=== PATIENT | female | born 1950 | race Caucasian/White ===

== ENCOUNTER 2020-05-17 16:50 | Emergency (ER) | payer MEDICARE, SELFPAY ==
--- NOTE | ~2020-05-17 | XR_ITS ---
EXAMINATION: XR chest 2V DATE: 05/17/2020 17:39 INDICATION: Palpitations. TECHNIQUE: Frontal and lateral views of the chest were obtained. COMPARISON: Chest 2 views 05/05/2019 FINDINGS: The chest demonstrates clear lungs without pneumonia, pleural effusion, or pneumothorax. Th e heart size is normal. IMPRESSION: 1. No acute cardiopulmonary disease. Reviewed, dictated and finalized at location A.
--- NOTE | 2020-05-17 17:18 | ECG_ITS ---
Measurements Intervals [place] Rate: 89 P: 78 TN: 169 QRS: 25 QRSD: 78 T: 53 QT: 342 QTc: 417 Interpretive Statements SINUS RHYTHM BASELINE ARTIFACT- I, II, AVR NORMAL ECG Electronically Signed On 05-18-2020 7:28:21 CDT by Ajit Torres D.O.
[2020-05-17 17:24] VITALS: BP 136/96; PULSE 87; RESP 16; TEMP 36.8; O2SAT 99
[2020-05-17 17:29] LABS: Basophils Absolute Auto 0.1 K/mm3 (0.0-0.1); Basophils Percent Auto 0.9 % (0.2-1.2); Eosinophils Absolute Auto 0.2 K/mm3 (0-0.3); Eosinophils Percent Auto 1.4 % (0-4.4); Hematocrit 45.7 % (37.0-47.0); Hemoglobin 15.2 g/dL (12.0-15.0); Immature Granulocyte Absolute 0.02 K/mm3 (0.00-0.031); Immature Granulocyte Percent A 0.2 % (0-0.5); Lymphocytes Absolute Auto 3.66 K/mm3 (0.9-3.2); Lymphocytes Percent Auto 35.2 % (18.3-44.2); Mean Corpuscular HGB Conc 33.3 g/dl (32-36); Mean Corpuscular Hemoglobin 32.2 pg (26-34); Mean Corpuscular Volume 96.8 fl (80-100); Mean Platelet Volume 9.7 fl (7.4-10.4); Monocytes Absolute Auto 1.2 K/mm3 (0.1-0.6); Neutrophils Absolute Auto 5.3 K/mm3 (1.3-6.7); Neutrophils Percent Auto 51.3 % (45.5-73.1); Platelet Count Result 254 k/mm3 (150-375); Red Blood Count 4.72 M/mm3 (4.2-5.4); Red Cell Distribution Width 12.2 % (11.5-14.5); White Blood Count 10.4 K/mm3 (4.5-10.0)
[2020-05-17 17:32] VITALS: BP 127/69; PULSE 92; RESP 18; O2SAT 97
[2020-05-17 17:39] LABS: INR 2.6; Partial Thromboplastin Time 47.4 SECONDS (22.3-36.8); Prothrombin Time 27.3 Seconds (11.1-14.7)
[2020-05-17 18:17] VITALS: BP 113/75; PULSE 88; RESP 18; O2SAT 100
[2020-05-17 18:24] LABS: Blood Urea Nitrogen 14 mg/dL (7-17); Calcium 9.6 mg/dL (8.4-10.2); Carbon Dioxide 29 mmol/L (22-30); Chloride 102 mmol/L (98-107); Estimated CRCL calculation 53 ml/min; Estimated Glomerular Filt Rate > 60; Glucose 99 mg/dL (65-105); Potassium 4.2 mmol/L (3.4-5.0); Sodium 140 mmol/L (137-145)
[2020-05-17 18:34] LABS: Troponin I < 0.012 ng/mL (0.000-0.034)
--- NOTE | 2020-05-17 19:30 | ED.ARRPALP ---
HPI - Arrhythmia/Palpitations General Chief Complaint: Arrhythmia/Palpitations Stated Complaint: possibly in AFIBB Time Seen by Provider: 05/17/20 19:03 History of Present Illness HPI narrative: Patient presents with her for heart palpitations off and on in the last week. She has a history of A. fib and is on Xarelto. She had an ablation a year ago. The symptoms just come and go and not in relation to any particular activity. Here her EKG shows sinus rhythm. She says she is having the palpitations even as we are speaking. The monitor shows sinus rhythm and her pulse is regular. She usually drinks 5 or 6 alcoholic beverages a day, and I explained it may be adrenaline stimulation from relative alcohol withdrawal. I recommended she follow-up with her county sheriff. She has had no other recent symptoms. She says that she has cigarettes but that she does not inhale. complaint: skipped beats and palpitations Onset (ago): week(s) Duration: intermittent Severity: moderate Context: occurred during rest Arrhythmia history: atrial fibrillation, on anti-coagulants and history of ablation Associated symptoms: denies other symptoms Related Data Home Medications Medication Instructions Recorded Confirmed metoprolol succinate 100 mg 100 mg PO DAILY 11/21/19 tablet,extended release 24 hr rivaroxaban 20 mg tablet 20 mg PO DAILY 11/21/19 coQ10 (ubiquinol) 200 mg PO DAILY 05/17/20 Allergies Allergy/AdvReac Type Severity Reaction Status Date / Time No Known Allergies Allergy Unknown Unverified 05/17/20 17:19 Review of Systems Review of Systems: Narrative: CONSTITUTIONAL: Denies fever, chills, or sweats. EYES: Denies visual changes, redness, or discharge. ENT: Denies rhinorrhea, congestion, sore throat, or otalgia. CARDIOVASCULAR: Denies chest pain, but does have palpitations. RESPIRATORY: Denies cough or dyspnea. GASTROINTESTINAL: Denies abdominal pain, nausea, vomiting, or diarrhea. GENITOURINARY: Denies dysuria or hematuria. SKIN: Denies rash or itching. MUSCULOSKELETAL: Denies back pain, joint pain, or myalgia. NEUROLOGIC: Denies headache, numbness, or weakness. PSYCHIATRIC: Denies anxiety or depression. All systems reviewed & are unremarkable except as noted in HPI and below PMFSH Surgical History Surgical History H/O: hysterectomy (~1988) History of tonsillectomy (~4) Family History Family History (Updated 11/21/19 @ 11:04 by Chantal Barron [facility]) Mother Stomach cancer Other Arthritis Cancer FH: cataracts Glaucoma Heart disease Shortness of breath Social History Social History (Updated 11/21/19 @ 11:07 by Chantal Barron [facility]) Smoking packs per day: 2 Smoking cigarettes per day: 40.0 Years smoked: 50 Smoking pack-years: 100.00 Smoking status: Current every day smoker Tobacco type: cigarettes Alcohol intake: current Substance use: unknown Gender identity (if verbalized by the patient): Female Exam Narrative: Exam Narrative: GENERAL: Well-appearing, well-nourished, and in no acute distress. HEAD: Normocephalic, atraumatic. EYES: PERRLA and EOMI. ENT: Nares clear, no rhinorrhea or epistaxis. Mucous membranes moist. NECK: Supple. CHEST: Clear to auscultation. No respiratory distress. HEART: Regular rate and rhythm. No murmur heard. Normal peripheral pulses. ABDOMEN: Soft, nontender, nondistended, normal active bowel sounds. EXTREMITIES: Normal range of motion. No edema. SKIN: Warm, dry, no rash. NEURO: No focal deficits. Alert and oriented x3. PSYCH: Normal mood and affect. Course Vital Signs Vital signs: Vital Signs Temperature 98.3 F 05/17/20 17:24 Pulse Rate 87 05/17/20 17:24 Respiratory Rate 16 05/17/20 17:24 Blood Pressure 136/96 H 05/17/20 17:24 Pulse Oximetry 99 05/17/20 17:24 Temperature 98.3 F 05/17/20 17:24 Pulse Rate 88 05/17/20 18:17 Respi
[2020-05-17 20:16] VITALS: BP 111/73; PULSE 84; RESP 16; TEMP 36.4; O2SAT 97
== END 2020-05-17 20:17 | disposition home or self-care (01) ==
PROVIDERS: Emergency Medicine; Emergency Provider Emergency Medicine; PCP Family Medicine
DX: R00.2 Palpitations (principal); D75.1 Secondary polycythemia; I48.91 Unspecified atrial fibrillation; Z79.01 Long term (current) use of anticoagulants; F17.210 Nicotine dependence, cigarettes, uncomplicated
CPT/HCPCS: 36415; 71046; 80048; 84484; 85025; 85610; 85730; 93005; 99284

== ENCOUNTER 2021-10-20 15:53 | Emergency (ER) | payer MEDICARE, SELFPAY ==
--- NOTE | 2021-10-20 16:01 | ECG_ITS ---
Measurements Intervals [place] Rate: 156 P: SC: 0 QRS: 21 QRSD: 76 T: 52 QT: 261 QTc: 421 Interpretive Statements ATRIAL FIBRILLATION WITH RAPID VENTRICULAR RESPONSE ABNORMAL ECG Electronically Signed On 10-21-2021 8:04:22 [employer] by Ajit Torres D.O.
[2021-10-20 16:05] VITALS: BP 153/89; PULSE 156; RESP 18; TEMP 36.4; O2SAT 97
== END 2021-10-21 04:30 | disposition left against medical advice (07) ==
PROVIDERS: Emergency Provider Emergency Medicine; PCP Family Medicine
DX: I48.91 Unspecified atrial fibrillation (principal); Z79.01 Long term (current) use of anticoagulants
CPT/HCPCS: 93005; 99199

== ENCOUNTER 2021-12-27 01:46 | Day surgery (SDC) | payer MEDICARE, SELFPAY ==
[2021-12-24 17:00] VITALS: BMI 24.3
[2021-12-27] VITALS (11 sets, daily range): BP systolic 93–141; BP diastolic 64–102; PULSE 77–144; RESP 13–20; TEMP 36; O2SAT 94–100; BMI 23.6
--- NOTE | 2021-12-27 10:00 | ECG_ITS ---
Measurements Intervals [place] Rate: 76 P: 73 AR: 171 QRS: 26 QRSD: 94 T: 78 QT: 399 QTc: 449 Interpretive Statements SINUS RHYTHM MINIMAL Q WAVES- INFERIOR LEADS BORDERLINE ECG Electronically Signed On 12-27-2021 12:17:31 [employer] by Ajit Torres D.O.
[2021-12-27] MEDS: SODIUM CHLORIDE 0.9% IV 1,000 ML 30 ML IV CONT (11:04)
[2021-12-27 11:13] LABS: Anion Gap 8 mmol/L (8-16); Blood Urea Nitrogen 10 mg/dL (7-17); Carbon Dioxide 26 mmol/L (22-30); Chloride 108 mmol/L (98-107); Estimated CRCL calculation 58 ml/min; Estimated Glomerular Filt Rate > 60; Glucose 104 mg/dL (65-110); Magnesium 1.8 mg/dL (1.6-2.3); Potassium 3.9 mmol/L (3.4-5.0); Sodium 142 mmol/L (137-145)
--- NOTE | 2021-12-27 11:14 | WPDMODSED ---
Moderate Sedation Note-Pt Data Patient Data Diagnosis: Atrial fibrillation Present Complaint: Atrial fibrillation Procedure to be performed/Plan: Elective electrical cardioversion Moderate sedation Allergies Allergy/AdvReac Type Severity Reaction Status Date / Time adhesive tape AdvReac Rash Verified 12/24/21 15:39 nickel AdvReac Rash Verified 12/24/21 15:38 Home Medications Medication Instructions Recorded Confirmed Type rivaroxaban 20 mg tablet 20 mg PO DAILY 11/21/19 12/27/21 History sertraline 25 mg tablet 25 mg PO DAILY #90 tablet 11/04/21 12/27/21 Rx coenzyme Q10 [Co Q-10] 200 mg PO DAILY 12/24/21 12/27/21 History diltiazem HCl [DILT-XR] 120 mg PO DAILY 12/24/21 12/27/21 History metoprolol tartrate 100 mg PO BID 12/24/21 12/27/21 History diphenhydramine HCl 25 mg PO HS PRN 12/27/21 12/27/21 History Current Medications: Active Medications Sodium Chloride (Normal Saline Iv) 1,000 mls @ 30 mls/hr IV CONT .Q24H BECCA Last Admin: 12/27/21 11:04 Dose: 30 mls/hr Documented by: Sedation/Anesthesia: No previous sedation/anesthesia problems (including family history). [facility] Past Medical History Medical History Atrial fibrillation Excessive drinking alcohol History of uterine fibroid Surgical History Surgical History H/O: hysterectomy (~1988) History of tonsillectomy (~1954) Family History Family History Mother , age 84 Stomach cancer Father , age 72 Liver cancer Other Arthritis Cancer FH: cataracts Glaucoma Heart disease Shortness of breath Social History Social History Smoking packs per day: 2 Smoking cigarettes per day: 40.0 Years smoked: 50 Smoking pack-years: 100.00 Smoking status: Current every day smoker Tobacco type: cigarettes Alcohol intake: current Substance use: unknown Gender identity (if verbalized by the patient): Female Mod Sed Physical Exam Physical Exam Pre Procedural Exam: Normal: Appearance, Eyes, Ears, Nose, Neck, Throat, Airway, Lungs, Heart Size, Heart Rate, Neuro Exam, Extremities and Skin and Variation: Heart Rhythm Hours since solid foods: 12 Hours since liquid intake: 12 Mallampati Classification: class II Internal Medicine - PN: Obj Da Meds/Results Medications: Active Medications Generic Name Dose Route Start Last Admin Trade Name Freq PRN Reason Stop Dose Admin Sodium Chloride 1,000 mls @ 30 mls/hr 12/27/21 10:00 12/27/21 11:04 Normal Saline Iv IV CONT 30 mls/hr .Q24H BECCA Administration Labs CBC & Chem 7: 12/27/21 10:45 Labs: Laboratory Results - last 24 hr 12/27/21 10:45 Sodium 142 Potassium 3.9 Chloride 108 H Carbon Dioxide 26 Anion Gap 8 BUN 10 Creatinine 0.70 Estim Creat Clear Calc 58 Estimated GFR > 60 Glucose 104 Calcium 9.0 Magnesium 1.8 ASA Classification/Sedation ASA Classification/Sedation ASA Class: II Emergent: No Risks: Risks, benefits and alternatives explained and patient/family accepted plan for sedation. Patient re-evaluated immediately prior to sedation.
--- NOTE | 2021-12-27 11:42 | P.PCNCVR_ITS ---
Cardioversion Cardioversion Date of procedure: 12/27/21 Procedure: 1. Electrical cardioversion 2. Moderate sedation Pre-op diagnosis: Atrial fibrillation Post-op diagnosis: same Indications: Atrial fibrillation Description of procedure: After discussing the risks, benefits and alternatives of procedure patient agreeable via verbal and written informed consent. Risks discussed include stroke, skin irritation or burn, shocking into more problematic heart rhythm, adverse reaction to anesthesia, . After time-out was taken and after already established and continuous telemetry monitoring, pulse oxygenation serial blood pressure assessments, procedure was initiated. Sedation: Versed 5 mg, fentanyl 100 mcg given in divided dosages Patient was monitored and medications were provided by Shazia Hawkins RN Procedure start time 11:24 a.m. Procedure stop time 11:40 a.m. Complications: None Blood loss: None Findings: Atrial fibrillation with rapid ventricular response was confirmed. Two hundred joules of biphasic synchronized energy was then used. The previously placed anterior and posterior defibrillator applies were in place. Two hundred joules of biphasic energy x1 restored sinus rhythm. Conclusion: 1. Successful scientology of sinus rhythm from atrial fibrillation using 200 joules of synchronized biphasic energy x1 2. Moderate sedation
--- NOTE | 2021-12-27 11:45 | ECG_ITS ---
Measurements Intervals [place] Rate: 121 P: RI: 0 QRS: 22 QRSD: 76 T: 69 QT: 313 QTc: 444 Interpretive Statements ATRIAL FIBRILLATION WITH RAPID VENTRICULAR RESPONSE NONSPECIFIC T-WAVE ABNORMALITY- HIGH LATERAL LEADS BASELINE ARTIFACT- I, III, AVL, AVF ABNORMAL ECG Electronically Signed On 12-27-2021 12:14:14 [facility] by Ajit Torres D.O.
--- NOTE | 2021-12-27 13:58 | SUR.PHASEII ---
1315 patient was discharged to home in stable condition. discharge/med instructions and follow ups reviewed with patient and Francisco and questions were answered.
== END 2021-12-27 13:15 | disposition home or self-care (01) ==
PROVIDERS: PCP Family Medicine; Visit Provider Internal Medicine Cardiovascular Disease
PROC: 5A2204Z Restoration of Cardiac Rhythm, Single (ICD-10-PCS; principal; 2021-12-27 11:30)
DX: I48.0 Paroxysmal atrial fibrillation (principal); Z79.01 Long term (current) use of anticoagulants; Z82.49 Family history of ischemic heart disease and other diseases of the circulatory system; Z87.891 Personal history of nicotine dependence; R53.83 Other fatigue; F10.10 Alcohol abuse, uncomplicated
CPT/HCPCS: 36415; 80048; 83735; 92960; J2250; J3010; J7030

== ENCOUNTER 2024-03-14 00:42 | Day surgery (SDC) | payer MEDICARE, SELFPAY ==
[2024-03-13 16:15] VITALS: BMI 24.5
[2024-03-14] VITALS (9 sets, daily range): BP systolic 123–144; BP diastolic 70–109; PULSE 72–132; RESP 12–32; TEMP 35.9; O2SAT 93–100; BMI 24.5
--- NOTE | 2024-03-14 10:00 | ECG_ITS ---
SEE SCANNED COPY FOR CONFIRMED REPORT MTDD
[2024-03-14 11:43] LABS: Alanine Aminotransferase 34 U/L (6-35); Albumin Level 4.7 g/dL (3.5-5.1); Alkaline Phosphatase 74 U/L (38-126); Anion Gap 6 mmol/L (4-12); Aspartate Amino Transferase 41 U/L (14-36); Bilirubin,Total 0.7 mg/dL (0.2-1.3); Blood Urea Nitrogen 13 mg/dL (7-17); Calcium 9.2 mg/dL (8.4-10.2); Carbon Dioxide 30 mmol/L (22-30); Chloride 104 mmol/L (98-107); Estimated CRCL calculation 56 ml/min; Estimated Glomerular Filt Rate > 60; Glucose 101 mg/dL (65-110); Magnesium 1.8 mg/dL (1.6-2.3); Potassium 4.2 mmol/L (3.4-5.0); Sodium 140 mmol/L (137-145)
--- NOTE | 2024-03-14 11:45 | WPDHPUPDATE1 ---
History and Physical Update Update Date/Time: 03/14/24 11:45 History and Physical has been reviewed, including an updated exam of the patient. There are NO changes in the patient's condition. Risks, benefits, and alternatives have been discussed and questions answered. Patient agrees to proceed with procedure.
--- NOTE | 2024-03-14 11:45 | WPDMODSED ---
Moderate Sedation Note-Pt Data Patient Data Diagnosis: Symptomatic atrial fibrillation Present Complaint: Symptomatic atrial fibrillation Procedure to be performed/Plan: Synchronized electrical cardioversion Allergies Allergy/AdvReac Type Severity Reaction Status Date / Time adhesive tape AdvReac Rash Verified 03/14/24 10:13 nickel AdvReac Rash Verified 03/14/24 10:13 Home Medications Medication Instructions Recorded Confirmed Type rivaroxaban 20 mg tablet (Xarelto) 20 mg PO DAILY 11/21/19 03/14/24 History coenzyme Q10 200 mg capsule (Co 300 mg PO DAILY 12/24/21 03/14/24 History Q-10) metoprolol tartrate 100 mg tablet 100 mg PO BID 12/24/21 03/14/24 History sertraline 50 mg tablet (Zoloft) 50 mg PO DAILY #90 tabs 02/12/24 03/14/24 Rx Os-Luiz 750 mg PO DAILY 03/13/24 03/14/24 History Sedation/Anesthesia: No previous sedation/anesthesia problems (including family history). [facility] Past Medical History Medical History Atrial fibrillation Excessive drinking alcohol History of uterine fibroid Surgical History Surgical History H/O: hysterectomy (~1988) History of tonsillectomy (~1953) Family History Family History Mother , age 84 Stomach cancer Father , age 72 Liver cancer Other Arthritis Cancer FH: cataracts Glaucoma Heart disease Shortness of breath Social History Social History Smoking packs per day: 2 Smoking cigarettes per day: 40.0 Years smoked: 50 Smoking pack-years: 100.00 Smoking status: Current every day smoker Tobacco type: cigarettes Alcohol intake: current Drinks per week: 21 Substance use: never Substance use type: does not use Living arrangements: with family Gender identity (if verbalized by the patient): Female Spiritual care concerns: No Mod Sed Physical Exam Physical Exam Pre Procedural Exam: Normal: Appearance, Lungs, Extremities and Skin and Variation: Heart Rate (Atrial fibrillation ) and Heart Rhythm (Atrial fibrillation ) Hours since solid foods: 12 Hours since liquid intake: 8 Mallampati Classification: class II Internal Medicine - PN: Obj Da Vital Signs Vital Signs: Vital Signs - 24 hr 03/14/24 10:29 Temperature 35.9 C L Pulse Rate 98 Respiratory Rate 16 Blood Pressure 144/97 H Pulse Oximetry 93 Oxygen Delivery Room Air Labs 03/14/24 11:23 Labs: Laboratory Results - last 24 hr 03/14/24 11:23 Sodium 140 Potassium 4.2 Chloride 104 Carbon Dioxide 30 Anion Gap 6 BUN 13 Creatinine 0.70 Estim Creat Clear Calc 56 Estimated GFR > 60 Glucose 101 Calcium 9.2 Magnesium 1.8 Total Bilirubin 0.7 AST 41 H ALT 34 Alkaline Phosphatase 74 Total Protein 8.0 Albumin 4.7 ASA Classification/Sedation ASA Classification/Sedation ASA Class: II Emergent: No Risks: Risks, benefits and alternatives explained and patient/family accepted plan for sedation. Patient re-evaluated immediately prior to sedation.
--- NOTE | 2024-03-14 11:46 | WPDCARDVER ---
Cardioversion Cardioversion Date of procedure: 03/14/24 Procedure: Synchronized electrical cardioversion Pre-op diagnosis: Atrial fibrillation Post-op diagnosis: Other (Sinus rhythm ) Indications: Symptomatic atrial fibrillation Description of procedure: Defibrillator pads placed in an AP position. Patient's hemodynamics and respiratory status was monitored throughout. Time out performed by FEDERICA Rocha. Total of Propofol 80mcg was administered. Once patient was adequately sedated, synchronized electrical cardioversion was performed with 1 shock at 250 joules, which restored sinus rhythm. No periprocedural complications. Procedure start time: 11:53 Procedure end time: 12:01 Sedation: Total of Propofol 80mg was administered by wy. Findings: Successful cardioversion to sinus rhythm with 1 shock at 250 joules. Conclusion: Successful cardioversion to sinus rhythm with 1 shock at 250 joules.
--- NOTE | 2024-03-14 12:00 | ECG_ITS ---
SEE SCANNED COPY FOR CONFIRMED REPORT MTDD
== END 2024-03-14 13:05 | disposition home or self-care (01) ==
PROVIDERS: PCP Family Medicine; Visit Provider Internal Medicine
PROC: 5A2204Z Restoration of Cardiac Rhythm, Single (ICD-10-PCS; principal; 2024-03-14 11:30)
DX: I48.91 Unspecified atrial fibrillation (principal); F17.210 Nicotine dependence, cigarettes, uncomplicated; Z79.01 Long term (current) use of anticoagulants; Z98.890 Other specified postprocedural states; Z80.0 Family history of malignant neoplasm of digestive organs; Z82.49 Family history of ischemic heart disease and other diseases of the circulatory system
CPT/HCPCS: 36415; 80053; 83735; 92960; J2704; J7040

== ENCOUNTER 2024-03-17 10:46 | Inpatient (IN) | payer MEDICARE, SELFPAY ==
[2024-03-17] VITALS (31 sets, daily range): BP systolic 111–152; BP diastolic 61–98; PULSE 70–96; RESP 13–24; TEMP 36.4–36.7; O2SAT 85–99; BMI 24.5
--- NOTE | ~2024-03-17 | XR_ITS ---
EXAMINATION: XR chest 2V DATE: 03/17/2024 11:34 INDICATION: Shortness of breath. TECHNIQUE: Frontal and lateral views of the chest were obtained. COMPARISON: Chest 2 views 05/17/2020 FINDINGS: There is a diffuse interstitial pattern in the lungs, consistent with mild pulmonary edema. No pleural effusion or pneumothorax. The heart size is normal. IMPRESSION: 1. Mild pulmonary edema. Reviewed, dictated and finalized at location A. IMPRESSION: 1. Mild pulmonary edema.
--- NOTE | ~2024-03-17 | CT_ITS ---
EXAMINATION: CTA chest PE protocol DATE: 03/18/2024 17:20 INDICATION: Hypoxia. Elevated d-dimer. TECHNIQUE: Computed tomography (CT) pulmonary angiogram of the chest was performed with 100 mL Omnipa que-350 intravenous contrast. Additional 3D reconstructions utilizing coronal maximum intensity proje ction (MIP) were performed. Automated exposure control and iterative reconstruction technique were em ployed. The dose-length product was 243.97 mGy-cm. COMPARISON: None FINDINGS: No pulmonary embolism. Moderate upper lung predominant emphysema. 1.7 x 1.5 cm patchy airspace opacit y at the posterior basilar left lower lobe. Additional 6 x 4 mm subpleural nodule in the left lower l obe. Mild atelectasis at the posterior sulcus of the right lower lobe. Heart size is normal. Small am ount of atherosclerotic coronary artery calcification. Ectatic ascending thoracic aorta measuring up to 4.2 cm. Instantly noted is a diverticulum of [place] on the inferior margin of the aortic arch. No pathologically enlarged thoracic lymphadenopathy. There is reflux of contrast into the inferior vena cava, several hepatic veins and right renal veins consistent with tricuspid regurgitation. Large calc ified gallstone in the decompressed gallbladder. Mild thoracic spondylosis. Severe spondylosis in the lower cervical and upper lumbar spine. IMPRESSION: 1. No pulmonary embolism. 2. Moderate emphysema in the upper lungs. 3. 1.7 x 1.5 cm patchy consolidation in the posterior basilar left lower lobe suspicious for pneumoni a but would recommend 3 month follow-up low-dose noncontrast chest CT to document resolution. 4. Cholelithiasis. Reviewed, dictated and finalized at location A. IMPRESSION: 1. No pulmonary embolism. 2. Moderate emphysema in the upper lungs. 3. 1.7 x 1.5 cm patchy consolidation in the posterior basilar left lower lobe s uspicious for pneumonia but would recommend 3 month follow-up low-dose noncontr ast chest CT to document resolution. 4. Cholelithiasis.
--- NOTE | 2024-03-17 10:48 | ECG_ITS ---
SEE SCANNED COPY FOR CONFIRMED REPORT MTDD
[2024-03-17 11:08] LABS: Basophils Absolute Auto 0.1 K/mm3 (0.0-0.1); Basophils Percent Auto 0.4 % (0.2-1.2); Eosinophils Absolute Auto 0.1 K/mm3 (0-0.3); Eosinophils Percent Auto 0.4 % (0-4.4); Hematocrit 41.6 % (37.0-47.0); Hemoglobin 13.6 g/dL (12.0-15.0); Immature Granulocyte Absolute 0.02 K/mm3 (0.00-0.031); Immature Granulocyte Percent A 0.2 % (0-0.5); Lymphocytes Absolute Auto 2.08 K/mm3 (0.9-3.2); Lymphocytes Percent Auto 18.3 % (18.3-44.2); Mean Corpuscular HGB Conc 32.7 g/dl (32-36); Mean Corpuscular Hemoglobin 31.3 pg (26-34); Mean Corpuscular Volume 95.6 fl (80-100); Mean Platelet Volume 9.6 fl (7.4-10.4); Monocytes Absolute Auto 1.2 K/mm3 (0.1-0.6); Monocytes Percent Auto 10.8 % (2.6-8.5); Neutrophils Percent Auto 69.9 % (45.5-73.1); Platelet Count Result 176 k/mm3 (150-375); Red Blood Count 4.35 M/mm3 (4.2-5.4); Red Cell Distribution Width 13.1 % (11.5-14.5); White Blood Count 11.4 K/mm3 (4.5-10.0)
[2024-03-17 11:19] LABS: Alanine Aminotransferase 42 U/L (6-35); Albumin Level 4.3 g/dL (3.5-5.1); Alkaline Phosphatase 62 U/L (38-126); Anion Gap 7 mmol/L (4-12); Aspartate Amino Transferase 44 U/L (14-36); Bilirubin,Total 1.3 mg/dL (0.2-1.3); Blood Urea Nitrogen 8 mg/dL (7-17); Calcium 9.1 mg/dL (8.4-10.2); Carbon Dioxide 28 mmol/L (22-30); Chloride 101 mmol/L (98-107); Estimated CRCL calculation 76 ml/min; Estimated Glomerular Filt Rate > 60; Glucose 145 mg/dL (65-110); Potassium 3.9 mmol/L (3.4-5.0); Sodium 136 mmol/L (137-145)
--- NOTE | 2024-03-17 11:19 | PC.NURSE ---
Pt oxygen fluctuating between 89-92%. Pt still c/o SOB. 2L NC oxygen placed on patient. Oxygen saturation increased to 95% and pt reports feeling better.
[2024-03-17] MEDS: FUROSEMIDE INJ 40 MG/4 ML VIAL IV PUSH (12:07)
[2024-03-17 12:37] LABS: INR 1.3; Prothrombin Time 16.5 Seconds (11.1-14.7)
[2024-03-17 12:39] LABS: Partial Thromboplastin Time 41.6 Seconds (22.3-36.8)
[2024-03-17 12:48] LABS: NT Pro B Type Natriuretic Pept 3810 pg/mL (19.9-100)
--- NOTE | 2024-03-17 12:57 | PC.NURSE ---
Dr. Collado at bedside, removed oxygen to assess patient oxygenation s/p medication
--- NOTE | 2024-03-17 13:19 | PC.NURSE ---
Ambulated patient with pulse oximeter per MD request. Pt oxygen dropped to 86% when walked to bathroom. Pt repositioned back in bed and oxygen maintained between 85-90% for several minutes and then increased back to 94% after resting. MD made aware.
--- NOTE | 2024-03-17 13:55 | PC.NURSE ---
Pt requesting to take home medications that she has brought with her. made aware. EDP Dr. Collado gave pt permission to take scheduled afternoon home meds.
--- NOTE | 2024-03-17 13:55 | ED.SOB ---
HPI - SOB/Dyspnea General Chief Complaint: Shortness of Breath/Dyspnea Stated Complaint: shortness of breath Time Seen by Provider: 03/17/24 11:11 History of Present Illness HPI Narrative: Patient is a 73-year-old female who presents ER with shortness of breath. Ongoing since she had her cardioversion for atrial fibrillation on 03/14/2024. She sees Dr. Mark. No fevers or chills or sweats. Symptoms are worse at night when lying down flat. No chest pain or chest pressure. Compliant with home medication. Related Data Home Medications Medication Instructions Recorded Confirmed rivaroxaban 20 mg tablet (Xarelto) 20 mg PO DAILY 11/21/19 03/14/24 coenzyme Q10 200 mg capsule (Co 300 mg PO DAILY 12/24/21 03/14/24 Q-10) metoprolol tartrate 100 mg tablet 100 mg PO BID 12/24/21 03/14/24 Os-Luiz 750 mg PO DAILY 03/13/24 03/14/24 Allergies Allergy/AdvReac Type Severity Reaction Status Date / Time adhesive tape AdvReac Rash Verified 03/14/24 10:13 nickel AdvReac Rash Verified 03/14/24 10:13 Review of Systems Review of Systems: All systems reviewed & are unremarkable except as noted in HPI and below ENT: Reports system reviewed and no additional complaints, except as documented Cardiovascular: Cardiovascular: Reports no additional cardiovascular complaints Respiratory: Respiratory: Denies chest congestion, Denies cough, Reports dyspnea and Denies wheezing Comments: + Orthopnea Gastrointestinal: Gastrointestinal: Reports no additional gastrointestinal complaints [facility] Past Medical History Medical History (Updated 03/17/24 @ 14:01 by Thomas Collado MD) Atrial fibrillation Excessive drinking alcohol History of uterine fibroid Surgical History Surgical History H/O: hysterectomy (~1988) History of tonsillectomy (~4) Family History Family History Mother , age 84 Stomach cancer Father , age 72 Liver cancer Other Arthritis Cancer FH: cataracts Glaucoma Heart disease Shortness of breath Social History Social History Smoking packs per day: 2 Smoking cigarettes per day: 40.0 Years smoked: 50 Smoking pack-years: 100.00 Smoking status: Current every day smoker Tobacco type: cigarettes Alcohol intake: current Drinks per week: 21 Substance use: never Substance use type: does not use Living arrangements: with family Gender identity (if verbalized by the patient): Female Spiritual care concerns: No Exam Narrative: GENERAL: Well-appearing, well-nourished, and in no acute distress. HEAD: Normocephalic, atraumatic. ENT: Mucous membranes moist. NECK: Supple. CHEST: Bibasilar crackles. No respiratory distress. HEART: Regular rate and rhythm. Normal peripheral pulses. ABDOMEN: Soft, nontender, nondistended. EXTREMITIES: Normal range of motion. No edema. SKIN: Warm, dry, no rash. NEURO: Alert and oriented x3. PSYCH: Normal mood and affect. Course Course Emergency Course: Patient hypoxic especially with ambulation. Does better with nasal cannula oxygen. Patient did have brief run of SVT while in the ER but self converted. She was only in the arrhythmia for couple minutes. Cardiology consulted. Patient took her home metoprolol while she was here. Admit to the hospitalist service. Diuresis ordered. Vital Signs Vital signs: Vital Signs Temperature 97.6 F 03/17/24 10:49 Pulse Rate 94 03/17/24 10:49 Respiratory Rate 24 H 03/17/24 10:49 Blood Pressure 147/98 H 03/17/24 10:49 Pulse Oximetry 92 03/17/24 10:49 Oxygen Delivery Room Air 03/17/24 10:49 Temperature 97.6 F 03/17/24 10:49 Pulse Rate 85 03/17/24 14:01 Respiratory Rate 16 03/17/24 14:01 Blood Pressure 132/69 03/17/24 14:01 Pulse Oximetry 93 03/17/24 14:01 Oxygen Delivery
--- NOTE | 2024-03-17 14:04 | ECG_ITS ---
SEE SCANNED COPY FOR CONFIRMED REPORT MTDD
--- NOTE | 2024-03-17 14:05 | PC.NURSE ---
Pt eating in bed when HR increased to 160. Dr. Collado at bedside, ekg performed. Pt converted back to NSR two minutes after. Second ekg performed.
--- NOTE | 2024-03-17 15:00 | PC.NURSE ---
2L NC placed on pt per EDP
--- NOTE | 2024-03-17 15:17 | PC.NURSE ---
Addendum entered by Elen Lyon RN 03/17/24 15:18: attempted to call @ [phone]* Original Note: Attempted to call report to 3rd med surg with no answer [phone]. They called back for report [phone].
--- NOTE | 2024-03-17 15:30 | ADMGEN ---
This patient, Valorie Betts, was admitted to [facility] Surg Room 306-02. Patient/family oriented to hospital policies and general routines including ID bracelet, bed and alarms, visiting hours, pain management, procedures, bathroom and other care routines, personal items, smoking policy, room service/diet, and visiting hours. Information on how to activate the Rapid Response Team has been discussed. Patient/Family are encouraged to report perceived risks to care and to ask questions if they do not understand what they are told or what they should do.
--- NOTE | 2024-03-17 15:46 | PM.IMHP ---
H&P: HPI History of Present Illness Date/Time: 03/17/24 15:45 Chief Complaint: Shortness of breath. Narrative: This is a very pleasant 73-year-old female smoker paroxysmal atrial fibrillation on chronic anticoagulation status post cardioversion on 03/14/[address] Ortiz who presented to the emergency department for evaluation of shortness of breath. She has felt short of breath since November which she assumed was related to persistent atrial fibrillation and it was thought that her symptoms would improve with rastafarian of normal sinus rhythm. Unfortunately the shortness of breath continues with exertion and she is now feeling short of breath at night when lying flat. She had lower extremity edema 4 months though that seems to have improved following cardioversion. She denies syncope, near syncope, chest pain, pleuritic pain, palpitations, sensations of racing heart, nausea, vomiting, and sweats. In the ED: She was in a normal sinus rhythm with rates in the 70s to low 90s but had a self-limiting episode of PSVT for upwards of 2 minutes. SpO2 at rest his in the low 90s however dropped to 85% with ambulation. Blood pressures have been stable. Labs were significant for a WBC count of 11.4, INR 1.3, sodium 136, AST 44, ALT 42, proBNP 3810. Chest x-ray demonstrated mild pulmonary edema. EKG showed sinus rhythm with nonspecific ST T-wave abnormalities. She received 40 mg IV furosemide in addition to her home metoprolol dose of 100 mg and she is being admitted in this setting for further treatment and cardiology consult. Review of Systems Review of Systems: 12 systems were reviewed and are negative except for as per HPI. [facility] Past Medical History Medical History Chronic anticoagulation Osteoporosis Paroxysmal atrial fibrillation Paroxysmal supraventricular tachycardia Tobacco abuse Unhealthy alcohol consumption 21 standard drinks a week as of 03/17/2024. Surgical History Surgical History (Updated 03/17/24 @ 16:01 by Lisa Anglin PA-C) History of cataract extraction (2021) History of hysterectomy (1987) History of laser assisted in situ keratomileusis (1996) History of tonsillectomy (1953) History of tubal ligation Family History Family History Mother , age 84 Stomach cancer Father , age 72 Liver cancer Other Arthritis Cancer FH: cataracts Glaucoma Heart disease Shortness of breath Social History Social History (Updated 03/17/24 @ 16:02 by Lisa Anglin PA-C) Social History: Surrogate medical decision maker: Francisco Betts, spouse. Code status: Full code. Smoking packs per day: 2 Smoking cigarettes per day: 40.0 Years smoked: 50 Smoking pack-years: 100.00 Smoking status: Current every day smoker Alcohol intake: current Drinks per week: 21 Substance use: never Substance use type: does not use Do You Feel Safe in your Home?: Yes Lack of Transportation: No Lack of Food: Never True Current Housing: I Have Housing Concerned About Future Housing: No Difficulty Paying Gas/Electric Bills: No Difficulty Paying for Meds: No Currently Unemployed: No Education: Associate Degree Difficulty w/ Childcare or Family Care: No Living arrangements: with family Spiritual care concerns: No Meds Home Medications and Allergies Home Medications Medication Instructions Recorded Confirmed Type rivaroxaban 20 mg tablet (Xarelto) 20 mg PO DAILY 11/21/19 03/17/24 History coenzyme Q10 200 mg capsule (Co 300 mg PO DAILY 12/24/21 03/17/24 History Q-10) metoprolol tartrate 100 mg tablet 100 mg PO BID 12/24/21 03/17/24 History sertraline 50 mg tablet (Zoloft) 50 mg PO DAILY #90 tabs 02/12/24 03/17/24 Rx Allergies Allergy/AdvReac Type Severity Reaction Status Date / Time adhesive tape AdvReac Rash Verified 03/14/24 10:13 nickel AdvReac Rash Verified 03/14/24 10:13 Hemalatha
[2024-03-17] MEDS: FUROSEMIDE INJ 40 MG/4 ML VIAL 20 MG IV PUSH (20:50)
[2024-03-17] MEDS: SERTRALINE HCL 50 MG TABLET PO (22:12)
[2024-03-17] MEDS: METOPROLOL TARTRATE 50 MG TAB 100 MG PO (22:16)
[2024-03-18] VITALS (13 sets, daily range): BP systolic 111–125; BP diastolic 73–95; PULSE 80–155; RESP 16–18; TEMP 36.2–36.6; O2SAT 93–95
--- NOTE | 2024-03-18 06:00 | ECHO_ITS ---
Patient Info Name: Valorie Betts Age: 73 years : 1950 Gender: Female Ht: 66 in Wt: 152 lbs BSA: 1.80 m2 HR: 115 bpm BP: 111 / 73 mmHg Heart Rhythm: Atrial Fibrillation Technical Quality: Fair Exam Date: 03/18/2024 7:43 AM Exam Location: Echo Lab Patient Status: Outpatient Admit Date: 03/17/2024 Staff Ordering Physician: Thomas Collado MD Staffing Administrator: Maureen Hollis RDCS Attending Provider: Jamil Hirsch MD Referring Physician: Tobias MCCOY; Exam Type: CA echo doppler color flow Study Info Indications - chf exacerbation Complete two-dimensional, color flow and Doppler transthoracic echocardiogram is performed. Summary 1. Complete two-dimensional, color flow and Doppler transthoracic echocardiogram is performed. 2. Normal left and right ventricular size and systolic function. 3. Moderate biatrial dilation. 4. Trivial aortic and mitral regurgitation. 5. Atrial fibrillation. Left Ventricle Left ventricular chamber dimension is normal. Left ventricular systolic function is normal, estimated at 60-65%. The left ventricular diastolic function is indeterminate. Right Ventricle Right ventricular chamber dimension is normal. Left Atria Left atrial chamber dimension is moderately enlarged. Right Atria Right atrial chamber dimension is moderately enlarged. Aortic Valve The aortic valve is normal. There is trace aortic valve regurgitation. Pulmonic Valve The pulmonic valve is normal. Mitral Valve The mitral valve has normal leaflets. There is trace mitral valve regurgitation. Tricuspid Valve The tricuspid valve leaflets are normal. Pericardium/Pleural The pericardium appears normal. Aorta The aortic root size at the sinus of Valsalva is normal. Left Ventricular Outflow Tract Name Value Normal LVOT 2D LVOT Diameter 2.0 cm LVOT Doppler LVOT Peak Gradient 3 mmHg LVOT Mean Gradient 2 mmHg LVOT VTI 15 cm LVOT VTI/AV VTI Ratio 0.9 LVOT Stroke Volume 45 ml LVOT CO 4.7 l/min LVOT CI 2.6 l/min/m2 Pulmonic Valve Name Value Normal RVOT Doppler RVOT Peak Gradient 3 mmHg PV Doppler PV Peak Gradient 3 mmHg Mitral Valve Name Value Normal MV Doppler MV Decel Ocean 343 cm/s2 MV PHT 65 ms MV Area (PHT) 3.4 cm2 4.0-5.0 MV Diastolic Function --
[2024-03-18 06:41] LABS: Hematocrit 41.7 % (37.0-47.0); Hemoglobin 13.8 g/dL (12.0-15.0); Mean Corpuscular HGB Conc 33.1 g/dl (32-36); Mean Corpuscular Hemoglobin 31.6 pg (26-34); Mean Corpuscular Volume 95.4 fl (80-100); Platelet Count Result 171 k/mm3 (150-375); Red Blood Count 4.37 M/mm3 (4.2-5.4); Red Cell Distribution Width 12.9 % (11.5-14.5); White Blood Count 9.7 K/mm3 (4.5-10.0)
[2024-03-18 07:02] LABS: Alanine Aminotransferase 36 U/L (6-35); Albumin Level 4.1 g/dL (3.5-5.1); Alkaline Phosphatase 59 U/L (38-126); Anion Gap 6 mmol/L (4-12); Aspartate Amino Transferase 32 U/L (14-36); Bilirubin,Total 1.5 mg/dL (0.2-1.3); Blood Urea Nitrogen 9 mg/dL (7-17); Calcium 8.8 mg/dL (8.4-10.2); Carbon Dioxide 31 mmol/L (22-30); Chloride 101 mmol/L (98-107); Estimated CRCL calculation 64 ml/min; Estimated Glomerular Filt Rate > 60; Glucose 107 mg/dL (65-110); Magnesium 1.7 mg/dL (1.6-2.3); Potassium 3.1 mmol/L (3.4-5.0); Sodium 138 mmol/L (137-145)
--- NOTE | 2024-03-18 08:10 | P.PNIM_ITS ---
Progress Note: A&P Assessment and Plan (1) Hypoxia: Code(s): R09.02 - Hypoxemia Status: Acute Assessment and Plan: acute oxygen desaturation to 85% on room air with activity * requiring o2 via NC at 2-4 L * pulmonary edema seen on chest XR. Chest XR also concerning for emphysemic changes. * Received IV Lasix * concerning for possible new CHF diagnosis * ECHO ordered and pending * cardiology was consulted, rec's appreciated * Case discussed with Dr Smith's with pulmonology, will see patient tomorrow * BNP will be repeated in the morning * ABG ordered * Apnea link ordered for tonight * D dimer pending * CTA PE vs CT chest diagnostic (2) Pulmonary edema: Code(s): J81.1 - Chronic pulmonary edema Status: Acute Assessment and Plan: See plan for 1 (3) Paroxysmal supraventricular tachycardia: Code(s): I47.10 - Supraventricular tachycardia, unspecified Status: Acute Assessment and Plan: likely related to hypoxia * on telemetry * received home dose metoprolol 100 mg BID (4) Paroxysmal atrial fibrillation: Code(s): I48.0 - Paroxysmal atrial fibrillation Status: Acute Assessment and Plan: Recent cardioversion with Dr Ortiz 03/14/[address] Ortiz * On metoprolol 100 mg BID * On rivaroxaban * Telemetry * EKG NSR ventricular rate 83 bpm (5) Chronic anticoagulation: 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 Status: Acute Assessment and Plan: on xarelto (6) Excessive drinking alcohol: Code(s): F10.10 - Alcohol abuse, uncomplicated Status: Acute Assessment and Plan: daily drinker, 3 beers daily per report * [employer] [place] on decreasing etoh consumption * monitor for withdrawal (7) Tobacco abuse: Code(s): Z72.0 - Tobacco use Status: Acute Assessment and Plan: -[place] on smoking cessation -declined nicotine patch Plan Feeding: Heart healthy diet Analgesia: Tylenol Thromboembolic prophylaxis: on Xarelto Disposition: Home once medically ready Subjective Date/time seen: 03/18/24 08:10 Interval history: This is a very pleasant 73-year-old female smoker paroxysmal atrial fibrillation on chronic anticoagulation status post cardioversion on 03/14/[address] Ortiz who presented to the emergency department for evaluation of shortness of breath.? 03/18: Patient is seen resting in bed on 2 L nasal cannula. She is in no acute respiratory distress since able speak in full sentences. She is tired and complains of not getting enough rest while hospitalized. She denies dyspnea rest but still has exertional dyspnea. Her breathing is somewhat improved since diuresis. She denies chest pain. Echo was just completed. Review of Syst
--- NOTE | 2024-03-18 08:10 | PM.IMPN ---
Progress Note: A&P Assessment and Plan (1) Hypoxia: Code(s): R09.02 - Hypoxemia Status: Acute Assessment and Plan: acute oxygen desaturation to 85% on room air with activity requiring o2 via NC at 2-4 L pulmonary edema seen on chest XR. Chest XR also concerning for emphysemic changes. Received IV Lasix concerning for possible new CHF diagnosis ECHO ordered and pending cardiology was consulted, rec's appreciated Case discussed with Dr Smith's with pulmonology, will see patient tomorrow BNP will be repeated in the morning ABG ordered Apnea link ordered for tonight D dimer pending CTA PE vs CT chest diagnostic (2) Pulmonary edema: Code(s): J81.1 - Chronic pulmonary edema Status: Acute Assessment and Plan: See plan for 1 (3) Paroxysmal supraventricular tachycardia: Code(s): I47.10 - Supraventricular tachycardia, unspecified Status: Acute Assessment and Plan: likely related to hypoxia on telemetry received home dose metoprolol 100 mg BID (4) Paroxysmal atrial fibrillation: Code(s): I48.0 - Paroxysmal atrial fibrillation Status: Acute Assessment and Plan: Recent cardioversion with Dr Ortiz 03/14/[address] Ortiz On metoprolol 100 mg BID On rivaroxaban Telemetry EKG NSR ventricular rate 83 bpm (5) Chronic anticoagulation: 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 Status: Acute Assessment and Plan: on xarelto (6) Excessive drinking alcohol: Code(s): F10.10 - Alcohol abuse, uncomplicated Status: Acute Assessment and Plan: daily drinker, 3 beers daily per report [place] on decreasing etoh consumption monitor for withdrawal (7) Tobacco abuse: Code(s): Z72.0 - Tobacco use Status: Acute Assessment and Plan: -[place] on smoking cessation -declined nicotine patch Plan Feeding: Heart healthy diet Analgesia: Tylenol Thromboembolic prophylaxis: on Xarelto Disposition: Home once medically ready Subjective Date/time seen: 03/18/24 08:10 Interval history: This is a very pleasant 73-year-old female smoker paroxysmal atrial fibrillation on chronic anticoagulation status post cardioversion on 03/14/[address] Ortiz who presented to the emergency department for evaluation of shortness of breath.? 03/18: Patient is seen resting in bed on 2 L nasal cannula. She is in no acute respiratory distress since able speak in full sentences. She is tired and complains of not getting enough rest while hospitalized. She denies dyspnea rest but still has exertional dyspnea. Her breathing is somewhat improved since diuresis. She denies chest pain. Echo was just completed. Review of Systems Review of Systems: 12 systems were reviewed and are negative except for as per HPI. All systems reviewed & are unremarkable except as noted in HPI and below Exam Narrative: General: appears tired, appears stated age. HEENT: normocephalic, atraumatic. Mucous membranes moist. EOMI, PERRLA, bilateral sclera anicteric, no conjunctival injection. Neck supple without JVD, lymphadenopathy, or bruit. Respiratory: fine crackle to auscultation bilaterally. No rales/rhonic/wheezes. Cardiovascular: irregular rhythm, normal S1-S2 upon auscultation. No murmurs, rubs, or clicks. PMI is nondisplaced, capillary refill less than 3 second. Abdomen: Soft, round, no pulsatile masses, nondistended and nontender. No rebound, no guarding. No CVA tenderness, no hepatosplenomegaly. Bowel sounds present to all four quadrants. No high pitch or tinkling sounds, resonant to percussion. Extremities: No cyanosis, clubbing. trace dependent edema present. Pulses are palpable 2/2. Active ROM to all four extremities. Neuro: Alert and orientated x 4. PERRLA. Cranial nerves 2-12 intact without focal deficit. Ski
[2024-03-18] MEDS: METOPROLOL TARTRATE 50 MG TAB 100 MG PO ×2 (08:21→20:26)
[2024-03-18] MEDS: FUROSEMIDE INJ 40 MG/4 ML VIAL 20 MG IV PUSH (08:21)
[2024-03-18] MEDS: SERTRALINE HCL 50 MG TABLET PO (08:21)
[2024-03-18] MEDS: POTASSIUM CHLORIDE 20 MEQ ER TABLET 40 MEQ PO (08:24)
--- NOTE | 2024-03-18 08:40 | PC.NURSE ---
Francine Redding Rf Design Engineer notified of patients heart rate in 150's afib when she sat on side of bed. Patient asymptomatic. Bp 119/95 ra sat 93%
[2024-03-18] MEDS: METOPROLOL TARTRATE INJ 5 MG/5 ML VIAL IV PUSH (08:43)
--- NOTE | 2024-03-18 12:35 | PM.CNCAR ---
Assessment and Plan Assessment and plan (1) Paroxysmal atrial fibrillation: Code(s): I48.0 - Paroxysmal atrial fibrillation Status: Acute Plan This is a 73-year-old lady with a history of paroxysmal atrial fibrillation status post cardioversion last week she presents now with a early recurrence of her atrial fib following cardioversion. It is also clear that this was not the reason for her shortness of breath since she was in sinus rhythm upon arrival here. Symptomatically she really can not tell much difference between how she feels in sinus rhythm versus atrial fibrillation. It must be remembered that this lady also has 100 pack-year history of smoking which undoubtedly is playing some role in her shortness of breath. At this point after a lengthy conversation we will elect to transition to a heart rate control/anticoagulation strategy rather than rhythm control. She does not wish to be subjected to proarrhythmic risks of a more potent antiarrhythmic agent. I will transition her furosemide to an oral regimen since she appears to be relatively comfortable at this time and continue metoprolol and Xarelto. She has an appointment to see my partner in the office on of this week I told her to come to that appointment to ensure that she is otherwise stable. Rakesh Mccall MD [facility] History of Present Illness History of Present Illness Consult date/time: 03/18/24 12:35 Reason For Visit: CHF Exacerbation, Hypoxia, SVT Narrative: This is a 73-year-old woman I am seeing at the request of the hospitalist because of shortness of breath, evidence of CHF and atrial fibrillation. She is a lady who is unknown to me but apparently known to my partner, Dr. Garcia with history of paroxysmal atrial fibrillation. She carried this diagnosis for a number of years but was never documented in till several years ago. She was placed on medical treatment with metoprolol and Xarelto for this and followed in the office since 2019. She is not known to have coronary disease or significant valvular heart disease. She was electrically cardioverted back in 2021 to restore sinus rhythm she has not really been on any significant antiarrhythmic therapy other than her metoprolol. She did have an office visit on 02/06/2024 with my partner who found her to be back in atrial fibrillation. She was scheduled for a DC cardioversion which took place that was done by my partner, Dr. Ortiz I believe last week. She came to the hospital of yesterday reporting symptoms of increasing shortness of breath since being cardioverted. Interestingly when she arrived at the hospital she was still in sinus rhythm although today she has reverted back into atrial fibrillation. Her heart rate is well controlled with atrial fib and she does not believe she can tell any difference verses when she was in sinus rhythm upon arrival here. She is comfortable and offers no complaints and is feeling well at this time. An echocardiogram was done earlier this morning which demonstrates good left ventricular and right ventricular systolic function, moderate biatrial dilation and trivial AI and MR. Had a lengthy discussion with the patient about AFib treatment strategies, or rhythm control versus rate control. Review of Systems Constitutional: Constitutional: Reports no additional constitutional complaints Eyes: Eyes: Reports no additional eye complaints ENT: Reports system reviewed and no additional complaints, except as documented Cardiovascular: Cardiovascular: Reports as per HPI Respiratory: Respiratory: Reports as per HPI Gastrointestinal: Gastrointestinal: Reports no additional gastrointestinal complaints Musculoskeletal: Musculoskeletal: Reports no additional musculoskeletal complaints Integumentary/Breasts: Skin/Breast: Reports system reviewed and no additional complaints, except as docu Neurologic: Reports system reviewed and no additional complaints, except as docume
[2024-03-18 15:38] LABS: Base Excess ABG 4.5 mEq/l (+/-2.0); Fractional Inspired Oxygen 21 %; Oxygen Content ABG 19.8 %vol (16.0-22.0); Oxygen Saturation ABG 94.1 % (95.0-100.0); Oxyhemoglobin 92.5 % THb (90.0-100.0); PCO2 ABG 42.4 mmHg (35.0-45.0); PO2 FiO2 Ratio Arterial Blood 3.19 %; Total Hemoglobin 15.2 g/dL (12.0-18.0); pH ABG 7.453 (7.350-7.450)
[2024-03-18 15:42] LABS: Modified Allen's Test Pass; Site Drawn RIGHT RADIAL
[2024-03-18] MEDS: RIVAROXABAN 20 MG TABLET PO (16:22)
[2024-03-18 16:27] LABS: D Dimer 0.82 ug/mL (<0.48)
[2024-03-19] VITALS (13 sets, daily range): BP systolic 121–128; BP diastolic 64–90; PULSE 80–105; RESP 18; TEMP 36.3–36.9; O2SAT 95–96
[2024-03-19 07:09] LABS: NT Pro B Type Natriuretic Pept 3530 pg/mL (19.9-100)
--- NOTE | 2024-03-19 08:10 | P.PNIM_ITS ---
Progress Note: A&P Assessment and Plan (1) Hypoxia: Code(s): R09.02 - Hypoxemia Status: Acute Assessment and Plan: acute oxygen desaturation to 85% on room air with activity * requiring o2 via NC at 2-4 L * pulmonary edema seen on chest XR. Chest XR also concerning for emphysemic changes. * Received IV Lasix * concerning for possible new CHF diagnosis * ECHO ordered and pending * cardiology was consulted, rec's appreciated * Case discussed with Dr Smith's with pulmonology, will see patient tomorrow * BNP will be repeated in the morning * ABG ordered * Apnea link ordered for tonight * D dimer pending * CTA PE vs CT chest diagnostic 03/19: * CTA negative for PE but does show 1.7 x 1.5 cm patchy consolidation to posterior basilar LLL suspicious for pneumonia. Radiology also recommending follow up CT in 3 months to document resolution. * Mild leukocytosis on admission 11.4, yet afebrile * c/o of SOB and hypoxia on admission. She had reported a cough but no real sputum production. * Started CAP therapy with Rocephin and azithromycin * BNP could be elevated from underlying infection. BNP on admission was 3810 today 3530 after IV Lasix in the ED. * ECHO shows normal L and R LV systolic function, moderate biatrial dilation, trivial aortic and mitral regurgitation. * Apnea link completed. Will be completed again today on 2 L. * Okay to start a daily Claritin per Dr Ortiz with cardiology. Pulmonology to start flonase. (2) Pulmonary edema: Code(s): J81.1 - Chronic pulmonary edema Status: Acute Assessment and Plan: See plan for 1 (3) Paroxysmal supraventricular tachycardia: Code(s): I47.10 - Supraventricular tachycardia, unspecified Status: Acute Assessment and Plan: likely related to hypoxia * on telemetry * received home dose metoprolol 100 mg BID (4) Paroxysmal atrial fibrillation: Code(s): I48.0 - Paroxysmal atrial fibrillation Status: Deleted Assessment and Plan: Recent cardioversion with Dr Ortiz 03/14/[address] Ortiz * On metoprolol 100 mg BID * On rivaroxaban * Telemetry * EKG NSR ventricular rate 83 bpm 03/19: * AFib with RVR this morning * Cardiology added amiodarone 400 mg t.i.d. for 1 week followed by 400 mg b.i.d. 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
--- NOTE | 2024-03-19 08:10 | PM.IMPN ---
Progress Note: A&P Assessment and Plan (1) Hypoxia: Code(s): R09.02 - Hypoxemia Status: Acute Assessment and Plan: acute oxygen desaturation to 85% on room air with activity requiring o2 via NC at 2-4 L pulmonary edema seen on chest XR. Chest XR also concerning for emphysemic changes. Received IV Lasix concerning for possible new CHF diagnosis ECHO ordered and pending cardiology was consulted, rec's appreciated Case discussed with Dr Smith's with pulmonology, will see patient tomorrow BNP will be repeated in the morning ABG ordered Apnea link ordered for tonight D dimer pending CTA PE vs CT chest diagnostic 03/19: CTA negative for PE but does show 1.7 x 1.5 cm patchy consolidation to posterior basilar LLL suspicious for pneumonia. Radiology also recommending follow up CT in 3 months to document resolution. Mild leukocytosis on admission 11.4, yet afebrile c/o of SOB and hypoxia on admission. She had reported a cough but no real sputum production. Started CAP therapy with Rocephin and azithromycin BNP could be elevated from underlying infection. BNP on admission was 3810 today 3530 after IV Lasix in the ED. ECHO shows normal L and R LV systolic function, moderate biatrial dilation, trivial aortic and mitral regurgitation. Apnea link completed. Will be completed again today on 2 L. Okay to start a daily Claritin per Dr Ortiz with cardiology. Pulmonology to start flonase. (2) Pulmonary edema: Code(s): J81.1 - Chronic pulmonary edema Status: Acute Assessment and Plan: See plan for 1 (3) Paroxysmal supraventricular tachycardia: Code(s): I47.10 - Supraventricular tachycardia, unspecified Status: Acute Assessment and Plan: likely related to hypoxia on telemetry received home dose metoprolol 100 mg BID (4) Paroxysmal atrial fibrillation: Code(s): I48.0 - Paroxysmal atrial fibrillation Status: Deleted Assessment and Plan: Recent cardioversion with Dr Ortiz 03/14/[address] Ortiz On metoprolol 100 mg BID On rivaroxaban Telemetry EKG NSR ventricular rate 83 bpm 03/19: AFib with RVR this morning Cardiology added amiodarone 400 mg t.i.d. for 1 week followed by 400 mg b.i.d. 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 Status: Acute Assessment and Plan: on xarelto (6) Excessive drinking alcohol: Code(s): F10.10 - Alcohol abuse, uncomplicated Status: Acute Assessment and Plan: daily drinker, 3 beers daily per report ewi[place]p on decreasing etoh consumption monitor for withdrawal (7) Tobacco abuse: Code(s): Z72.0 - Tobacco use Status: Acute Assessment and Plan: -ewiiaapaayp on smoking cessation -declined nicotine patch -100 year smoking pack years Plan Feeding: Heart healthy diet Analgesia: Tylenol Thromboembolic prophylaxis: on Xarelto Disposition: Home once medically ready Subjective Date/time seen: 03/19/24 08:10 Interval history: This is a very pleasant 73-year-old female smoker paroxysmal atrial fibrillation on chronic anticoagulation status post cardioversion on 03/14/[address] Ortiz who presented to the emergency department for evaluation of shortness of breath.? 03/18: Patient is seen resting in bed on 2 L nasal cannula. She is in no acute respiratory distress since able speak in full sentences. She is tired and complains of not getting enough rest while hospitalized. She denies dyspnea rest but still has exertional dyspnea. Her breathing is somewhat improved since diuresis. She denies chest pain. Echo was just completed. 03/19: Patient appears improved today from yesterday. She is less tired than yesterday. However she does n
[2024-03-19] MEDS: SERTRALINE HCL 50 MG TABLET PO (08:22)
[2024-03-19] MEDS: METOPROLOL TARTRATE 50 MG TAB 100 MG PO ×2 (08:22→20:18)
[2024-03-19] MEDS: FUROSEMIDE 40 MG TABLET PO (08:22)
[2024-03-19] MEDS: AZITHROMYCIN 500 MG/NS 250 ML 500 MG/250 ML BAG 250 MG IVPB (08:26)
[2024-03-19 08:35] LABS: Basophils Absolute Auto 0.1 K/mm3 (0.0-0.1); Basophils Percent Auto 0.8 % (0.2-1.2); Eosinophils Absolute Auto 0.3 K/mm3 (0-0.3); Eosinophils Percent Auto 2.7 % (0-4.4); Hematocrit 42.7 % (37.0-47.0); Hemoglobin 14.1 g/dL (12.0-15.0); Immature Granulocyte Absolute 0.02 K/mm3 (0.00-0.031); Immature Granulocyte Percent A 0.2 % (0-0.5); Lymphocytes Absolute Auto 2.69 K/mm3 (0.9-3.2); Lymphocytes Percent Auto 27.1 % (18.3-44.2); Mean Corpuscular Hemoglobin 32.2 pg (26-34); Mean Corpuscular Volume 97.5 fl (80-100); Mean Platelet Volume 10.8 fl (7.4-10.4); Monocytes Absolute Auto 1.4 K/mm3 (0.1-0.6); Neutrophils Absolute Auto 5.5 K/mm3 (1.3-6.7); Neutrophils Percent Auto 55.2 % (45.5-73.1); Platelet Count Result 192 k/mm3 (150-375); Red Blood Count 4.38 M/mm3 (4.2-5.4); Red Cell Distribution Width 13.1 % (11.5-14.5); White Blood Count 9.9 K/mm3 (4.5-10.0)
[2024-03-19 08:56] LABS: Alanine Aminotransferase 31 U/L (6-35); Albumin Level 3.8 g/dL (3.5-5.1); Alkaline Phosphatase 57 U/L (38-126); Anion Gap 4 mmol/L (4-12); Aspartate Amino Transferase 32 U/L (14-36); Bilirubin,Total 0.9 mg/dL (0.2-1.3); Blood Urea Nitrogen 10 mg/dL (7-17); Carbon Dioxide 30 mmol/L (22-30); Chloride 104 mmol/L (98-107); Estimated CRCL calculation 64 ml/min; Estimated Glomerular Filt Rate > 60; Glucose 101 mg/dL (65-110); Magnesium 1.8 mg/dL (1.6-2.3); Potassium 3.7 mmol/L (3.4-5.0); Sodium 138 mmol/L (137-145)
--- NOTE | 2024-03-19 10:00 | PM.CNPUL ---
Assessment and Plan Assessment and plan (1) COPD (chronic obstructive pulmonary disease): Code(s): J44.9 - Chronic obstructive pulmonary disease, unspecified Status: Acute Assessment and Plan: Patient with 110 pack year tobacco use, quit smoking 03/17/2024, exposed to secondhand smoke. Moderate centrilobular emphysema on her CT scan from 03/18/24. dyspnea on exertion that started in November of 2023. I have no PFTs. Rest room air blood gas 7 point 4 . Overnight oximetry with nocturnal hypoxemia. Plan: I believe the patient does have COPD and this is likely contributor to her dyspnea on exertion. There is no evidence of an active COPD exacerbation She has a history of atrial fibrillation and will avoid long-acting beta agonists and will initiate long-acting muscarinic antagonist inhaler to see if this improves her symptoms. Will prescribe Incruse Ellipta. Will prescribe rescue levalbuterol as well. Will prescribe 2 L nasal cannula at night. Will perform home O2 assessment today In anticipation of discharge soon. The patient has a left lower lobe infiltrate with an area of consolidation or and although she has no symptoms of an active infection, agree with antibiotic course of azithromycin and ceftriaxone with follow-up CT scan in 3 months. if patient remains stable overnight ready for discharge from a pulmonary perspective on these pulmonary medications. Levofloxacin 750 mg p.o. q.day to complete a total of 10 days of antibiotics. Incruse Ellipta 62.5 at 1 puff q.day. Rescue levalbuterol 2 puffs Q 4 hours p.r.n. shortness of breath or wheezing. Discussed with Antonia Kent, will follow with you. (2) Tobacco abuse: Code(s): Z72.0 - Tobacco use Status: Acute Assessment and Plan: patient is currently smoking 2 packs per day up until this admission. I have told the patient the cigarettes are detrimental to her health an each cigarette is killing her. She understands this. She has quit for 61 days in the past and she quit cold turkey. I have told her that it is necessary she stop smoking at this time and she feels she will be able to do this. History of Present Illness History of Present Illness Consult date: 03/19/24 Chief complaint: CHF Exacerbation, Hypoxia, SVT Narrative: 03/19/2024: This is a new pulmonary consult for COPD. 73-year-old with a history of atrial fibrillation, allergic rhinitis and tobacco use. patient presented to the hospital on 03/17 with shortness of breath worse since November felt to be attributed to her atrial fibrillation. She has been managed by Cardiology and has had cardioversion. She presented in sinus rhythm she was treated with IV Lasix for fluid overload. it was felt that her shortness of breath was due to other etiologies rather than her cardiac issues. Her strategy per Cardiology is for rate control and anticoagulation rather than rhythm control at this time. She is on metoprolol and Xarelto. The patient had no breathing issues in grade school or high school. She played volleyball and softball in high school. She had no breathing issues in her life until November of 2023. In October she had no activity limitations in her daily living. She could do a rolling bicycle 15 minutes 6 to 7 times a week and continue to do this up until this admission. Since November she times noticed dyspnea on exertion even walking in her house but no rest shortness of breath. She denies chronic cough, chronic phlegm production, hemoptysis. She has sinus congestion for decades and felt that her sinuses have been getting worse. She snorts and swallows mucus and has postnasal drip. Sometimes she uses saline solutions. The patient smoked tobacco from age 18 to admission on 03/17/2024. She smoked 2 packs per day for a total of 110 pack years. She was exposed to secondhand smoke from her father and from her significant other's throughout her life. She
--- NOTE | 2024-03-19 10:03 | PM.PNCARD ---
Progress Note: A&P Assessment and Plan (1) Paroxysmal atrial fibrillation with RVR: Code(s): I48.0 - Paroxysmal atrial fibrillation Status: Acute Assessment and Plan: As patient had RVR this morning, I think it may be difficult to achieve good rate control in this patient. Recommend antiarrhythmic therapy. Will start her on Amiodarone 400mg TID x 1 week, followed by 400mg BID x 1 week, followed by 400mg daily. Continue Metoprolol. Continue Xarelto. Hopefully discharge home tomorrow, will arrange close outpatient follow up with Dr. Garcia. (2) Acute exacerbation of congestive heart failure: Code(s): I50.9 - Heart failure, unspecified Status: Acute Assessment and Plan: Echocardiogram with preserved LVEF. Continue with PO Lasix. (3) Chronic anticoagulation: Code(s): Z79.01 - correction (current) use of anticoagulants Status: Acute Assessment and Plan: Continue Xarelto. Subjective Date/time seen: 03/19/24 10:03 Interval history: Reason for visit: Atrial fibrillation, CHF HPI: This is a 73-year-old woman I am seeing at the request of the hospitalist because of shortness of breath, evidence of CHF and atrial fibrillation.? She is a lady who is unknown to me but apparently known to my partner, Dr. Garcia with history of paroxysmal atrial fibrillation.? She carried this diagnosis for a number of years but was never documented in till several years ago.? She was placed on medical treatment with metoprolol and Xarelto for this and followed in the office since 2019.? She is not known to have coronary disease or significant valvular heart disease.? She was electrically cardioverted back in 2021 to restore sinus rhythm she has not really been on any significant antiarrhythmic therapy other than her metoprolol.? She did have an office visit on 02/06/2024 with my partner who found her to be back in atrial fibrillation.? She was scheduled for a DC cardioversion which took place that was done by my partner, Dr. Ortiz I believe last week.? She came to the hospital of yesterday reporting symptoms of increasing shortness of breath since being cardioverted.? Interestingly when she arrived at the hospital she was still in sinus rhythm although today she has reverted back into atrial fibrillation.? Her heart rate is well controlled with atrial fib and she does not believe she can tell any difference verses when she was in sinus rhythm upon arrival here.? She is comfortable and offers no complaints and is feeling well at this time.? An echocardiogram was done earlier this morning which demonstrates good left ventricular and right ventricular systolic function, moderate biatrial dilation and trivial AI and MR.? Had a lengthy discussion with the patient about AFib treatment strategies, or rhythm control versus rate control. Date of service 03/19: Remains in AFIB. Had an episode of RVR this morning that lasted for about 1 hour. She did not really notice any symptoms at that time. Review of Systems Review of Systems: All systems reviewed & are unremarkable except as noted in HPI and below (HPI) Exam Const: General: comfortable and no acute distress HENMT: Mouth: Yes moist mucous membranes Eyes: General: appearance normal, both eyes and all related structures Sclera: sclerae normal Resp: Effort & Inspection: normal respiratory effort Cardio: Rhythm: abnormal rhythm irregularly irregular Skin: General skin exam: normal color Neuro: Speech: normal speech Psych: Mental Status: mental status grossly normal Affect: normal affect Objective Data Vital Signs Vital Signs: Vital Signs - 24 hr 03/18/24 12:00 03/18/24 14:00 03/18/24 16:00 Temperature 36.2 C L Pulse Rate 115 H 95 92 Respiratory Rate 18 Blood Pressure 117/74 Pulse Oximetry 93 Oxygen Delivery 03/18/24 20:26 03/18/24 20:29 03/18/24 20:00 Temperature 36.4 C Pulse Rate 106 H 100 104 H Respiratory Rate 17 Bloo
[2024-03-19] MEDS: AMIODARONE HCL 200 MG TABLET 400 MG PO ×3 (10:13→16:30)
[2024-03-19] MEDS: FLUTICASONE PROPIONATE 0.05% NA SPR 16 GM BTL (*BKC) 1 SPRAY NASAL ×2 (13:33→21:00)
[2024-03-19] MEDS: RIVAROXABAN 20 MG TABLET PO (16:30)
[2024-03-20] VITALS (8 sets, daily range): BP systolic 128; BP diastolic 79; PULSE 74–92; RESP 18; TEMP 37.3; O2SAT 93–97
[2024-03-20 06:07] LABS: Basophils Absolute Auto 0.1 K/mm3 (0.0-0.1); Basophils Percent Auto 0.8 % (0.2-1.2); Eosinophils Absolute Auto 0.2 K/mm3 (0-0.3); Eosinophils Percent Auto 2.3 % (0-4.4); Hematocrit 42.2 % (37.0-47.0); Hemoglobin 13.5 g/dL (12.0-15.0); Immature Granulocyte Absolute 0.03 K/mm3 (0.00-0.031); Immature Granulocyte Percent A 0.3 % (0-0.5); Lymphocytes Absolute Auto 3.21 K/mm3 (0.9-3.2); Lymphocytes Percent Auto 32.2 % (18.3-44.2); Mean Corpuscular Hemoglobin 31.2 pg (26-34); Mean Corpuscular Volume 97.5 fl (80-100); Mean Platelet Volume 10.2 fl (7.4-10.4); Monocytes Absolute Auto 1.3 K/mm3 (0.1-0.6); Monocytes Percent Auto 12.6 % (2.6-8.5); Neutrophils Absolute Auto 5.2 K/mm3 (1.3-6.7); Neutrophils Percent Auto 51.8 % (45.5-73.1); Platelet Count Result 213 k/mm3 (150-375); Red Blood Count 4.33 M/mm3 (4.2-5.4); Red Cell Distribution Width 12.8 % (11.5-14.5)
[2024-03-20 06:29] LABS: Alanine Aminotransferase 30 U/L (6-35); Albumin Level 3.9 g/dL (3.5-5.1); Alkaline Phosphatase 54 U/L (38-126); Anion Gap 3 mmol/L (4-12); Aspartate Amino Transferase 27 U/L (14-36); Bilirubin,Total 0.6 mg/dL (0.2-1.3); Blood Urea Nitrogen 9 mg/dL (7-17); Calcium 8.9 mg/dL (8.4-10.2); Carbon Dioxide 32 mmol/L (22-30); Chloride 103 mmol/L (98-107); Estimated CRCL calculation 64 ml/min; Estimated Glomerular Filt Rate > 60; Glucose 101 mg/dL (65-110); Potassium 3.8 mmol/L (3.4-5.0); Sodium 138 mmol/L (137-145)
[2024-03-20] MEDS: SERTRALINE HCL 50 MG TABLET PO (07:51)
[2024-03-20] MEDS: METOPROLOL TARTRATE 50 MG TAB 100 MG PO (07:51)
[2024-03-20] MEDS: AMIODARONE HCL 200 MG TABLET 400 MG PO ×2 (07:51→12:03)
[2024-03-20] MEDS: FUROSEMIDE 40 MG TABLET PO (07:51)
[2024-03-20] MEDS: AZITHROMYCIN 500 MG/NS 250 ML 500 MG/250 ML BAG 250 MG IVPB (07:52)
[2024-03-20] MEDS: UMECLIDINIUM BROMIDE 62.5 MCG ELLIPTA 1 PUFF INHALATION (08:23)
--- NOTE | 2024-03-20 09:09 | PM.PNCARD ---
Progress Note: A&P Assessment and Plan (1) Paroxysmal atrial fibrillation with RVR: Code(s): I48.0 - Paroxysmal atrial fibrillation Status: Acute Assessment and Plan: Started on Amiodarone. Patient to take Amiodarone 400mg TID x 1 week, followed by 400mg BID x 1 week, followed by 400mg daily. Continue Metoprolol. Continue Xarelto. Okay to discharge home today, will arrange close outpatient follow up with Dr. Garcia. (2) Acute exacerbation of congestive heart failure: Code(s): I50.9 - Heart failure, unspecified Status: Acute Assessment and Plan: Echocardiogram with preserved LVEF. Continue with PO Lasix. (3) Chronic anticoagulation: Code(s): Z79.01 - MCC (current) use of anticoagulants Status: Acute Assessment and Plan: Continue Xarelto. Plan Recommendations and plan discussed with Hospitalist. Subjective Date/time seen: 03/20/24 09:09 Interval history: Reason for visit: Atrial fibrillation, CHF HPI: This is a 73-year-old woman I am seeing at the request of the hospitalist because of shortness of breath, evidence of CHF and atrial fibrillation.? She is a lady who is unknown to me but apparently known to my partner, Dr. Garcia with history of paroxysmal atrial fibrillation.? She carried this diagnosis for a number of years but was never documented in till several years ago.? She was placed on medical treatment with metoprolol and Xarelto for this and followed in the office since 2019.? She is not known to have coronary disease or significant valvular heart disease.? She was electrically cardioverted back in 2021 to restore sinus rhythm she has not really been on any significant antiarrhythmic therapy other than her metoprolol.? She did have an office visit on 02/06/2024 with my partner who found her to be back in atrial fibrillation.? She was scheduled for a DC cardioversion which took place that was done by my partner, Dr. Ortiz I believe last week.? She came to the hospital of yesterday reporting symptoms of increasing shortness of breath since being cardioverted.? Interestingly when she arrived at the hospital she was still in sinus rhythm although today she has reverted back into atrial fibrillation.? Her heart rate is well controlled with atrial fib and she does not believe she can tell any difference verses when she was in sinus rhythm upon arrival here.? She is comfortable and offers no complaints and is feeling well at this time.? An echocardiogram was done earlier this morning which demonstrates good left ventricular and right ventricular systolic function, moderate biatrial dilation and trivial AI and MR.? Had a lengthy discussion with the patient about AFib treatment strategies, or rhythm control versus rate control. Date of service 03/19: Remains in AFIB. Had an episode of RVR this morning that lasted for about 1 hour. She did not really notice any symptoms at that time. Date of service 03/20: Doing well, remains in AFIB. Overall rate controlled, had brief RVR into 120s this morning, but did not have symptoms related to it at that time. Review of Systems Review of Systems: All systems reviewed & are unremarkable except as noted in HPI and below (HPI) Exam Const: General: comfortable and no acute distress HENMT: Mouth: Yes moist mucous membranes Eyes: General: appearance normal, both eyes and all related structures Sclera: sclerae normal Resp: Effort & Inspection: normal respiratory effort Cardio: Rhythm: abnormal rhythm irregularly irregular Skin: General skin exam: normal color Neuro: Speech: normal speech Psych: Mental Status: mental status grossly normal Affect: normal affect Objective Data Vital Signs Vital Signs: Vital Signs - 24 hr 03/19/24 10:13 03/19/24 12:00 03/19/24 12:59 Temperature Pulse Rate 86 99 87 Respiratory Rate Blood Pressure Pulse Oximetry Oxygen Delivery 03/19/24 14:00 03/19/24 16:00
--- NOTE | 2024-03-20 09:14 | PM.DS ---
DS: Admitting Diagnosis Discharge Date 03/20/24 Admitting Diagnosis Hypoxia Pulmonary edema Paroxysmal supraventricular tachycardia Paroxysmal atrial fibrillation Chronic anticoagulation Excessive drinking alcohol Tobacco abuse DS: Discharge Diagnosis Discharge Diagnosis (1) Hypoxia: Code(s): R09.02 - Hypoxemia Status: Acute (2) Pulmonary edema: Code(s): J81.1 - Chronic pulmonary edema Status: Acute (3) Paroxysmal supraventricular tachycardia: Code(s): I47.10 - Supraventricular tachycardia, unspecified Status: Acute (4) Paroxysmal atrial fibrillation: Code(s): I48.0 - Paroxysmal atrial fibrillation Status: Deleted (5) Chronic anticoagulation: Code(s): Z79.01 - alf (current) use of anticoagulants Status: Acute (6) Excessive drinking alcohol: Code(s): F10.10 - Alcohol abuse, uncomplicated Status: Acute (7) Tobacco abuse: Code(s): Z72.0 - Tobacco use Status: Acute DS: Summary Hospital Course Reason for hospitalization: Hypoxia Pulmonary edema Paroxysmal supraventricular tachycardia Paroxysmal atrial fibrillation Chronic anticoagulation Excessive drinking alcohol Tobacco abuse Hospital Course: This is a 73-year-old female who presented to the hospital on 03/17/2024 with shortness of breath. Workup in the hospital included chest x-ray which showed mild pulmonary edema. Chest CTA showed no pulmonary embolism, moderate emphysema in the upper lobes, 1.7 x 1.5 cm patchy consolidation in the posterior basilar left lower lobe suspicious for pneumonia, cholelithiasis. While in ED the patient had a self-limiting episode of SVT were 2 minutes, low oxygen saturation of 85% while in the ED. patient was found to be in AFib RVR. Initial labs shown a white blood cell count of 11.4 INR 1.3 D-dimer 0.8, sodium 136, AST 44, ALT 42, proBNP 3800, TSH 2.96. Cardiology was consulted. Patient was started on amiodarone, metoprolol, Lasix, Xarelto. On examination today patient is alert and oriented x3, sitting on side of bed. She denies any fever, chills, nausea, vomiting, diarrhea, abdominal pain, chest pain, shortness of breath. Labs today were essentially unremarkable. Vital signs are stable she is afebrile, she is currently on room air. Patient is stable for discharge at this time. She will need to follow up with Cardiology in a couple weeks as well as Pulmonology for her newly diagnosed COPD. She will need to wear 2L of O2 at night only. Final diagnosis: Acute hypoxic respiratory, pulmonary edema paroxysmal SVT, AFib RVR, COPD Status at Discharge Cognitive/behavioral status at discharge: Alert oriented times Functional status at discharge: independent ambulation Overall status at discharge: patient is progressing back to baseline Time Spent with Patient Time attestation: Total time spent providing and/or coordinating discharge services: Time spent: Greater than 30 minutes Exam Narrative: General: In no acute distress, well nourished Head: atraumatic, no encephalopathy Eyes: EOMI, PERRLA, sclera clear ENT: moist mucous membranes, nasal passages clear Neck: supple, no JVD, no adenopathy, trachea midline Cardiac: Normal S1 and S2. RRR, No murmur, gallops or friction rubs, peripheral pulses intact. Respiratory: Lungs clear to auscultation, no adventitious lung sounds, currently on room air Gastrointestinal: soft, non-distended, non-tender, normoactive bowel sounds. : voiding without difficulty. Extremities: moves all extremities well, no edema, good ROM, strength 5/5 Skin: clean, dry, intact. No wounds or lesions. Neuro: Alert and oriented x4, cranial nerves intact, no neuro deficits. Psych: normal mood, normal affect, interactive DS: Data Data Completed and Pending Completed studies during hospitalization: Chest x-ray Chest CTA Pending studies at discharge: None Labs on day of discharge: Labs from last 24 hours
--- NOTE | 2024-03-20 09:38 | PM.PNPUL ---
Progress Note: A&P Assessment and Plan (1) COPD (chronic obstructive pulmonary disease): Code(s): J44.9 - Chronic obstructive pulmonary disease, unspecified Status: Acute Assessment and Plan: Patient with 110 pack year tobacco use, quit smoking 03/17/2024, exposed to secondhand smoke. Moderate centrilobular emphysema on her CT scan from 03/18/24. dyspnea on exertion that started in November of 2023. I have no PFTs. Rest room air blood gas 7 point 4 . Overnight oximetry with nocturnal hypoxemia. 03/19 Plan: I believe the patient does have COPD and this is likely contributor to her dyspnea on exertion. There is no evidence of an active COPD exacerbation She has a history of atrial fibrillation and will avoid long-acting beta agonists and will initiate long-acting muscarinic antagonist inhaler to see if this improves her symptoms. Will prescribe Incruse Ellipta. Will prescribe rescue levalbuterol as well. Will prescribe 2 L nasal cannula at night. Will perform home O2 assessment today In anticipation of discharge soon. The patient has a left lower lobe infiltrate with an area of consolidation or and although she has no symptoms of an active infection, agree with antibiotic course of azithromycin and ceftriaxone with follow-up CT scan in 3 months. 03/20/24: patient states she is breathing normal. She has no dyspnea on exertion. White blood cell count 10, creatinine 0.6. Room air saturations 96%. Patient had an overnight oximetry on 2 L nasal cannula with recording duration 6 hours and 14 minutes. Average saturation 98%. Low saturation 88%. Time with saturation less than or equal to 88% was 0 minutes. Oxygen desaturation 0.5. The patient tolerated Incruse Ellipta. she tells me she will not quit smoking cigarettes but will try to cut back. today is day 2 of ceftriaxone and azithromycin The patient is ready to be discharged from a pulmonary perspective on these pulmonary medications. Levofloxacin 750 mg p.o. q.day X 8 days to complete a total of 10 days of antibiotics. Incruse Ellipta 62.5 at 1 puff q.day. Rescue levalbuterol 2 puffs Q 4 hours p.r.n. shortness of breath or wheezing. 2 L oxygen when she sleeps. Oxygen at rest and with ambulation per home O2 assessment which I have ordered. 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 Discussed with Arabella Melendez, will sign off, call with questions. (2) Tobacco abuse: Code(s): Z72.0 - Tobacco use Status: Acute Assessment and Plan: 03/19/24: patient is currently smoking 2 packs per day up until this admission. I have told the patient the cigarettes are detrimental to her health an each cigarette is killing her. She understands this. She has quit for 61 days in the past and she quit cold turkey. I have told her that it is necessary she stop smoking at this time and she feels she will be able to do this. 03/20/24: The patient tells me today she has no intentions of quitting cigarettes. She does state that she will try to cut back from a pack per day to a half a pack per day. I have again reinforced that is dangerous for her to smoke and she does understand this. Subjective Date/time seen: 03/20/24 09:38 Interval history: ?03/19/2024: This is a new pulmonary consult for COPD.? 73-year-old with a history of atrial fibrillation,? allergic rhinitis and tobacco use.? patient presented to the hospital on 03/17 with shortness of breath worse since November felt to be attributed to her atrial fibrillation.? She has been managed by Cardiology and has had cardioversion. ? She presented in sinus rhythm she was treated with IV Lasix for fluid overload. ? it was felt that her shortness of breath was due to other etiologies rather than her cardiac issues.? Her strategy per Cardiology is for rate control and anticoagulation rather than rhythm control at this time.? She is o
--- NOTE | 2024-03-20 11:22 | HOMEO2EVAL ---
Evaluation was performed at [facility] Home Oxygen Evaluation RC: Home Oxygen (O2) Evaluation Start: 03/20/24 08:35 Freq: ONCE Status: Active Protocol: RPE Activity Type Activity Date Activity User E-sign Co-sign Detail Recorded Client Recorded Date Recorded By Document 03/20/24 11:00 DJO [email or web address] 03/20/24 11:22 DJO Document 03/20/24 11:05 [email or web address] [email or web address] 03/20/24 11:22 DJO Document 03/20/24 11:20 [email or web address] [email or web address] 03/20/24 11:22 DJO 03/20/24 03/20/24 03/20/24 11:00 11:05 11:20 Home O2 Evaluation [Oxygen] -Test Phase Resting Exercise Resting -Oxygen Delivery Room Air Room Air Room Air [Pulse Oximetry] -Pulse Oximetry (90-100 %) 94 93 94 [Pulse Rate] -Pulse Rate (60-100 beats/min) 74 91 92 [Evaluation] -Activity Tolerance Good [Charges] -Evaluation Charges O2 Evaluation by Pulmonary
[2024-03-22 15:24] LABS: Alpha-1-Antitrypsin, QN 190 mg/dL (83-199)
== END 2024-03-20 13:10 | disposition home or self-care (01) | DRG 194 ==
LOC: ANHED 14:33 → ANH3MEDSUR 14:55
PROVIDERS: Internal Medicine Pulmonary Disease; Nurse Practitioner Acute Care; Physician Assistant; Admitting Provider Internal Medicine; Emergency Provider Emergency Medicine; PCP Family Medicine; Visit Provider Nurse Practitioner Acute Care
DX: J18.9 Pneumonia, unspecified organism (principal); I47.10 Supraventricular tachycardia, unspecified; J44.0 Chronic obstructive pulmonary disease with (acute) lower respiratory infection; J81.1 Chronic pulmonary edema; I48.0 Paroxysmal atrial fibrillation; K80.20 Calculus of gallbladder without cholecystitis without obstruction; M81.0 Age-related osteoporosis without current pathological fracture; F10.10 Alcohol abuse, uncomplicated; F17.210 Nicotine dependence, cigarettes, uncomplicated; Z79.01 Long term (current) use of anticoagulants
CPT/HCPCS: 36415; 36600; 71046; 71275; 80053; 82103; 82104; 82805; 83735; 83880; 84443; 85025; 85027; 85380; 85610; 85730; 93005; 93306; 94618; 94640; 94762; 96365; 96368; 96374; 96375; 96376; 99285; A9270; G0378; J0456; J0696; J1940; Q9967

== ENCOUNTER 2024-06-25 14:45 | Outpatient (CLI) | payer MEDICARE, SELFPAY ==
--- NOTE | 2024-06-26 10:49 | WPDSIXMINUTE ---
Six Minute Walk Procedure Procedure Performed Pulmonary Stress Test (6 min walk) Six Minute Walk Six Minute Walk: This is a 6 minute walk test. The test was performed and interpreted in accordance with the 2014 ERS/ATS task force guidelines. Findings: The patient's resting room air oxygen saturation measured by pulse oximetry was 93% and heart rate was 88 bpm. Patient ambulated for 198 meters and oxygen saturation remained 90 to 92%. Heart rate at the end of the study was 135 bpm. The patient did not qualify for supplemental oxygen at rest or with ambulation. There are no prior studies for comparison.
--- NOTE | 2024-06-26 10:50 | P.PCNPFT_ITS ---
PFT Procedure Performed PFT Procedure Performed Spirometry with Pre/Post Bronchodilator Plethysmography (Lung Vol) Diffusing Cap (DLCO) Flow Vol Loop PFT Interpretation This is a pulmonary function test with pre and post-bronchodilator spirometry, plethysmography and diffusing capacity. The test was performed and results interpreted in accordance with the 2019 and 2005 ATS/ERS Task Force guidelines respectively using the Global Lung Function Initiative-2012 reference equations. Patient demonstrated good effort and cooperation. Reproducibility criteria were met. The quality of the pre bronchodilator spirometry maneuver was Grade A and post bronchodilator spirometry maneuver was Grade A. Findings: Spirometry: There is decreased maximal expiratory airflow at low lung volumes with concave expiratory flow tracing. The contour the inspiratory flow tracing is normal. The pre bronchodilator FVC is 2.33 L, 85% predicted. The pre bronchodilator FEV1 is 1.50 L, 71% predicted. The pre bronchodilator FEV1: FVC ratio is 64%. The post bronchodilator FVC is 2.48 L, representing a 7% increase. The post bronchodilator FEV1 is 1.50 L, representing no change. The post bronchodilator FEV1: FVC ratio is 60%. Plethysmography: The total lung capacity is 4.36 L, 84% predicted. The functional residual capacity is 2.83 L, 94% predicted. The residual volume is 1.90 L, 80% predicted. Diffusing capacity: The diffusing capacity unadjusted for hemoglobin and carboxyhemoglobin is 10.3, 51% predicted. The diffusing capacity adjusted for alveolar volume is 3.07, 74% predicted. Impression: There is a mild obstructive abnormality with a normal FEV1. There is no significant improvement after inhaling a single dose of albuterol. The lung volumes are normal. The diffusing capacity unadjusted for hemoglobin and carboxyhemoglobin is moderately decreased and normalizes when adjusted for veronica eolar volume. There are no prior studies for comparison
== END 2024-06-25 14:46 | disposition home or self-care (01) ==
PROVIDERS: PCP Family Medicine; Visit Provider Internal Medicine Critical Care Medicine
DX: J44.9 Chronic obstructive pulmonary disease, unspecified (principal)
CPT/HCPCS: 94060; 94618; 94726; 94729

== ENCOUNTER 2024-07-10 02:09 | Day surgery (SDC) | payer MEDICARE, SELFPAY ==
[2024-07-09 12:58] VITALS: BMI 25.0
[2024-07-10] VITALS (10 sets, daily range): BP systolic 102–150; BP diastolic 55–95; PULSE 50–80; RESP 13–20; TEMP 36.6; O2SAT 91–98; BMI 25.0
--- NOTE | 2024-07-10 08:30 | ECG_ITS ---
Test Date: 2024-07-10 08:57:25 Measurements Intervals [place] Rate: 71 P: 0 VA: 0 QRS: -14 QRSD: 92 T: 76 QT: 410 QTc: 448 Interpretive Statements ATRIAL FIBRILLATION BORDERLINE R WAVE PROGRESSION, ANTERIOR LEADS NONSPECIFIC ST-T WAVE ABNORMALITY- INF/HIGH LAT LEADS BASELINE ARTIFACT- II, III, AVR, AVL, AVF, V4 ABNORMAL ECG No previous ECG available for comparison Electronically Signed On 07-10-2024 09:28:23 CDT by Ajit Torres D.O.
[2024-07-10 09:20] LABS: Anion Gap 9 mmol/L (4-12); Blood Urea Nitrogen 16 mg/dL (7-17); Calcium 9.3 mg/dL (8.4-10.2); Carbon Dioxide 33 mmol/L (22-30); Chloride 99 mmol/L (98-107); Estimated CRCL calculation 53 ml/min; Estimated Glomerular Filt Rate > 60; Glucose 96 mg/dL (65-110); Magnesium 1.9 mg/dL (1.6-2.3); Potassium 4.2 mmol/L (3.4-5.0); Sodium 141 mmol/L (137-145)
--- NOTE | 2024-07-10 09:57 | WPDMODSED ---
Moderate Sedation Note-Pt Data Patient Data Diagnosis: Atrial fibrillation Present Complaint: Atrial fibrillation Procedure to be performed/Plan: 1. Moderate sedation 2. Electrical cardioversion Allergies Allergy/AdvReac Type Severity Reaction Status Date / Time adhesive tape AdvReac Rash Verified 07/10/24 08:59 nickel AdvReac Rash Verified 07/10/24 08:59 Home Medications Medication Instructions Recorded Confirmed Type rivaroxaban 20 mg tablet (Xarelto) 20 mg PO DAILY 11/21/19 07/10/24 History coenzyme Q10 200 mg capsule (Co 200 mg PO DAILY 12/24/21 07/10/24 History Q-10) metoprolol tartrate 100 mg tablet 100 mg PO BID 12/24/21 07/10/24 History furosemide 40 mg tablet 40 mg PO DAILY #30 tabs 03/19/24 07/10/24 Rx sertraline 50 mg tablet (Zoloft) 50 mg PO DAILY #90 tabs 04/12/24 07/10/24 Rx Trelegy Ellipta 100 mcg-62.5 1 inh inhalation Q24H COPD 3 06/11/24 07/10/24 Rx mcg-25 mcg powder for inhalation months #180 ea ([id number]) levalbuterol tartrate 45 1 puff inhalation Q6HRT PRN 06/28/24 07/10/24 Rx mcg/actuation aerosol inhaler Shortness Of Breath #15 grams (Xopenex HFA) amiodarone 200 mg tablet (Pacerone) 200 mg PO DAILY 07/10/24 07/10/24 History Current Medications: Active Medications Sodium Chloride (Normal Saline Iv) 1,000 mls @ 30 mls/hr IV CONT .Q24H BECCA Sedation/Anesthesia: No previous sedation/anesthesia problems (including family history). [facility] Past Medical History Medical History Chronic anticoagulation Osteoporosis Paroxysmal supraventricular tachycardia Tobacco abuse Unhealthy alcohol consumption 21 standard drinks a week as of 03/17/2024. Surgical History Surgical History History of cataract extraction (2021) History of hysterectomy (1987) History of laser assisted in situ keratomileusis (1996) History of tonsillectomy (1953) History of tubal ligation Family History Family History Mother , age 84 Stomach cancer Father , age 72 Liver cancer Other Arthritis Cancer FH: cataracts Glaucoma Heart disease Shortness of breath Social History Social History Social History: Surrogate medical decision maker: Francisco Betts, spouse. Code status: Full code. Smoking packs per day: 2 Smoking cigarettes per day: 40.0 Years smoked: 50 Smoking pack-years: 100.00 Smoking status: Former smoker Tobacco type: cigarettes Smoking end date: 03/30/24 Alcohol intake: current Drinks per week: 21 Substance use: never Substance use type: does not use Do You Feel Safe in your Home?: Yes Lack of Transportation: No Lack of Food: Never True Current Housing: I Have Housing Concerned About Future Housing: No Difficulty Paying Gas/Electric Bills: No Difficulty Paying for Meds: No Currently Unemployed: No Education: Associate Degree Difficulty w/ Childcare or Family Care: No Living arrangements: with family Spiritual care concerns: No Mod Sed Physical Exam Physical Exam Pre Procedural Exam: Normal: Appearance, Eyes, Ears, Nose, Neck, Throat, Airway, Lungs, Heart Size, Heart Rate, Neuro Exam, Abdomen, Extremities and Skin and Variation: Heart Rhythm (Irregular irregular) Hours since solid foods: 12 Hours since liquid intake: 12 Mallampati Classification: class II Internal Medicine - PN: Obj Da Vital Signs Vital Signs: Vital Signs - 24 hr 07/10/24 09:01 Temperature 36.6 C Pulse Rate 75 Respiratory Rate 13 Blood Pressure 143/80 H Pulse Oximetry 95 Oxygen Delivery Room Air Meds/Results Medications: Active Medications Generic Name Dose Route Start Last Admin Trade Name Freq PRN Reason Stop Dose Admin Sodium Chloride 1,000 mls @ 30 mls/hr 07/10/24 08:30 Normal Saline Iv IV CONT .Q24H SC
--- NOTE | 2024-07-10 10:17 | WPDCARDVER ---
Cardioversion Cardioversion Date of procedure: 07/10/24 Procedure: 1. Electrical cardioversion 2. Moderate sedation Pre-op diagnosis: Atrial fibrillation Post-op diagnosis: Same Indications: Atrial fibrillation Description of procedure: After discussing the risks, benefits alternatives of the procedure patient agreed with the verbal and written informed consent. Risks discussed included shock into more problematic heart rhythm, adverse reaction to anesthesia, skin irritation or burn, stroke. After establishing continuous manager field service, pulse oxygenation and serial blood pressure assessments time-out was taken procedure was started. Procedure start time: 10:02 a.m. Procedure stop time 10:17 a.m. Medications given: Total of 5 mg of Versed and 100 mcg of fentanyl given in divided dosages Complications: None Blood loss: None Medications were administered and patient was monitored by Caroline Perez RN After adequate sedation, 175 joules of synchronized biphasic energy was used to restore sinus rhythm from atrial fibrillation. Sedation: As detailed above Findings: Successful quaker of sinus rhythm using 175 joules of biphasic synchronized energy Conclusion: 1. Moderate sedation 2. Successful electrical cardioversion with quaker of sinus rhythm from atrial fibrillation using 125 joules of synchronized biphasic energy.
--- NOTE | 2024-07-10 10:30 | ECG_ITS ---
Test Date: 2024-07-10 10:19:27 Measurements Intervals [place] Rate: 52 P: 24 TN: 191 QRS: 16 QRSD: 88 T: 64 QT: 409 QTc: 381 Interpretive Statements SINUS BRADYCARDIA WITH SINUS ARRHYTHMIA BORDERLINE R WAVE PROGRESSION, ANTERIOR LEADS CONSIDER INFERIOR INFARCT, AGE INDETERMINATE BORDERLINE ST-T WAVE ABNORMALITY- HIGH LATERAL LEADS BASELINE ARTIFACT- AVR, AVL, AVF, V1-V3 ABNORMAL ECG Compared to ECG 07/10/2024 08:57:25 ATRIAL FIBRILLATION NO LONGER PRESENT Electronically Signed On 07-10-2024 10:29:16 CDT by Ajit Torres D.O.
== END 2024-07-10 11:29 | disposition home or self-care (01) ==
PROVIDERS: PCP Family Medicine; Visit Provider Internal Medicine Cardiovascular Disease
PROC: 5A2204Z Restoration of Cardiac Rhythm, Single (ICD-10-PCS; principal; 2024-07-10 10:00)
DX: I48.0 Paroxysmal atrial fibrillation (principal); M81.0 Age-related osteoporosis without current pathological fracture; Z79.01 Long term (current) use of anticoagulants; Z79.51 Long term (current) use of inhaled steroids; Z79.899 Other long term (current) drug therapy; Z98.890 Other specified postprocedural states; Z98.51 Tubal ligation status; Z87.891 Personal history of nicotine dependence; Z86.79 Personal history of other diseases of the circulatory system; Z80.0 Family history of malignant neoplasm of digestive organs; Z82.49 Family history of ischemic heart disease and other diseases of the circulatory system
CPT/HCPCS: 36415; 80048; 83735; 92960; J2250; J3010; J7030